=== PATIENT | male | born 1965 | race Two or more races ===

== ENCOUNTER 2019-09-02 18:19 | Emergency (ER) | payer MEDICAID ==
[~2019-09-02] VITALS: Ht 182.9 cm; Wt 81.5 kg
[2019-09-02 18:27] VITALS: BP 137/83
[2019-09-02] MEDS ORDERED: PHENYLEPHRINE 10 MG/ML ONE (18:49)
[2019-09-02] MEDS ORDERED: BUPIVACAINE 0.25% ONE (18:50)
--- NOTE | 2019-09-02 18:52 | NUR ---
PT HERE FOR ERECT PENIS THAT HAS REMAINED ERECT FOR 13 HOURS. PT REPORTS HE TOOK TRAZADONE 13 HOURS AGO.
[2019-09-02] MEDS ORDERED: PHENYLEPHRINE 10 MG/ML IC ONE (19:00)
[2019-09-02] MEDS ORDERED: BUPIVACAINE/PF 0.5% INFIL ONE (19:00)
== END 2019-09-02 20:06 | disposition home or self-care (01) ==
LOC: ED 19:50
DX: N48.33 Priapism, drug-induced (principal)
CPT/HCPCS: 54220; 99284; J2370

== ENCOUNTER 2021-04-21 21:56 | Emergency (ER) | payer MEDICAID ==
[~2021-04-21] VITALS: Ht 182.9 cm; Wt 80.0 kg
[2021-04-21 22:01] VITALS: BP 163/98
--- NOTE | 2021-04-21 22:32 | NUR ---
pt was seen via the lobby camera moving from wheelchair to floor. Went out to assess patient, he stated "I just leaned too far forwards." No loss of consciousness, no visible injury or bleeding. Patient then said "Fuck this place", refused to answer further questions, and left the lobby without being seen. Patient ambulated by self without assistance.
== END 2021-04-21 22:37 | disposition left against medical advice (07) ==
LOC: ED 22:01
DX: M79.89 Other specified soft tissue disorders (principal); Z53.21 Procedure and treatment not carried out due to patient leaving prior to being seen by health care provider